=== PATIENT | female | born 1995 | race Caucasian/White ===

== ENCOUNTER 2016-10-15 22:49 | Emergency (ER) | payer OTHER ==
[~2016-10-15] VITALS: Ht 170.2 cm; Wt 61.9 kg
[2016-10-16 01:06] LABS: BASO % 0.4 % (0.0-1.0); EOS % 0.5 % (0.0-3.0); LARGE UNSTAINED CELL # 0.1 K/mm3 (0.0-0.4); LYMPH # 1.2 K/mm3 (1.5-6.5); LYMPH % 15.3 % (24.0-44.0); MEAN CORPUSCULAR HEMOGLOBIN 32.1 pg (27.0-33.0); MEAN CORPUSCULAR VOLUME 94.4 fl (80.0-96.0); MONO # 0.3 K/mm3 (0.0-0.8); MONO % 4.3 % (0.0-5.0); NEUTROPHILS # 6.2 K/mm3 (1.8-7.7); NEUTROPHILS % 78.5 % (36.0-66.0); PLATELET COUNT, AUTOMATED 212 k/mm3 (150-450); RED CELL DISTRIBUTION WIDTH 12.2 % (11.5-14.5); WHITE BLOOD COUNT 7.9 K/mm3 (4.0-10.0)
--- NOTE | 2016-10-16 01:40 | REPUSA ---
CLINICAL HISTORY: Vaginal bleeding. TECHNIQUE: Transabdominal and endovaginal ultrasound of the pelvis was performed. FINDINGS: Single, live intrauterine gestation. Estimated gestational age is 6 weeks. The crown-rump length measures 3 mm. heart rate 111 beats per minute. Large subchorionic hemorrhage measuring 3.1 cm. Right ovarian hemorrhagic cyst, likely a corpus luteum. Estimated delivery date on 06/11/2017. IMPRESSION: Single, live intrauterine gestation. Subchorionic hemorrhage. Right ovarian hemorrhagic cyst, likely a corpus luteum.
[2016-10-16 01:42] VITALS: BP 113/56
== END 2016-10-16 02:19 | disposition home or self-care (01) ==
LOC: M ED 10-16 00:06
DX: O20.0 Threatened abortion (principal); O20.8 Other hemorrhage in early pregnancy; O34.80 Maternal care for other abnormalities of pelvic organs, unspecified trimester; Z3A.01 Less than 8 weeks gestation of pregnancy

== ENCOUNTER 2017-06-05 05:19 | Inpatient (IN) | payer OTHER ==
[2017-06-05 06:05] LABS: HEMATOCRIT 31.8 % (36.0-47.0); HEMOGLOBIN 10.6 g/dl (12.0-16.0); MEAN CORPUSCULAR HEMOGLOBIN 30.4 pg (27.0-33.0); MEAN CORPUSCULAR HGB CONC 33.3 g/dl (32.0-36.5); MEAN CORPUSCULAR VOLUME 91.1 fl (80.0-96.0); PLATELET COUNT, AUTOMATED 259 10^3/uL (150-450); RED BLOOD COUNT 3.49 10^6/uL (4.00-5.40); RED CELL DISTRIBUTION WIDTH 13.7 % (11.5-14.5); WHITE BLOOD COUNT 11.9 10^3/uL (4.0-10.0)
[2017-06-05] MEDS: AZITHROMYCIN INJ 500 MG, VIAL MATE ADAPTER 1 EACH in D5W 250 ML IV (06:12)
[2017-06-05] MEDS: LR 1,000 ML IV ×5 (06:20→21:45)
[2017-06-05] MEDS: BICITRA 30ML SOLN UDC PO (07:44)
[2017-06-05] MEDS ORDERED: NALOXONE INJ 0.4 MG/1 ML VIAL (J2310) IV ×2 (08:03)
[2017-06-05] MEDS ORDERED: ONDANSETRON 4MG/2ML VIAL (J2405) IV ×2 (08:03→09:30)
[2017-06-05] MEDS ORDERED: METOCLOPRAMIDE INJ 10MG/2ML VIAL (J2765) IV ×2 (08:03→09:30)
[2017-06-05] MEDS ORDERED: NALBUPHINE HCL 10 MG/ML AMP (J2300) IV (08:03)
[2017-06-05] MEDS: ACETAMINOPHEN 650 MG SUPP PR (08:10)
[2017-06-05 08:39] LABS: CORD GAS ABE A 1.5; CORD GAS HCO3 A 30.7 MEQ/L; CORD GAS O2 SAT A 17.7 %; CORD GAS PCO2 A 70.6 mmHg; CORD GAS PH A 7.256 UNITS; CORD GAS PO2 A 12.3 mmHg; CORD GAS SBC A 23.8 MEQ/L; CORD GAS TCO2 A 32.9 MEQ/L
[2017-06-05 08:40] LABS: CORD GAS ABE V 1.4; CORD GAS HCO3 V 26.7 MEQ/L; CORD GAS O2 SAT V 69.6 %; CORD GAS PCO2 V 44.6 mmHg; CORD GAS PH V 7.395 UNITS; CORD GAS PO2 V 28.4 mmHg; CORD GAS TCO2 V 28.1 MEQ/L
[2017-06-05] MEDS ORDERED: ePHEDrine INJ 50 MG/ML VIAL As Ordered (08:40)
[2017-06-05] MEDS ORDERED: KETOROLAC 60 MG/2 ML VIAL (J1885) As Ordered (08:40)
[2017-06-05] MEDS ORDERED: OXYTOCIN INJ 10 UNITS/ML VIAL (J2590) As Ordered (08:40)
[2017-06-05] MEDS ORDERED: ONDANSETRON 4MG/2ML VIAL (J2405) As Ordered (08:40)
[2017-06-05] MEDS ORDERED: MORPHINE PRES-FREE INJ 10 MG/10 ML VIAL (J2274) As Ordered (08:40)
[2017-06-05] MEDS: BUPIVACAINE HCL 0.25% 10 ML VIAL INFIL (09:01)
[2017-06-05] MEDS ORDERED: OXYTOCIN INJ 10 UNITS/ML VIAL (J2590) IV (09:15)
[2017-06-05] MEDS ORDERED: PERCOCET 5MG/325MG TAB PO ×2 (09:15→09:30)
[2017-06-05] MEDS ORDERED: OXYTOCIN DRIP 30 UNITS in APPROPRIATE DILUENT 1 EA IV (09:15)
[2017-06-05] MEDS ORDERED: METHYLERGONOVINE MALEATE 0.2 MG TAB PO (09:15)
[2017-06-05] MEDS ORDERED: MOM 30ML SUSPENSION UDC PO (09:15)
[2017-06-05] MEDS ORDERED: ANUSOL HC CREAM 30GM TOP (09:15)
[2017-06-05] MEDS ORDERED: fentaNYL 100 MCG/2 ML INJECTION (J3010) IV (09:30)
[2017-06-05] MEDS ORDERED: MEPERIDINE INJ 25 MG/ML VIAL (J2175) IV (09:30)
[2017-06-05] MEDS: MEASLES,MUMPS,RUBELLA VACCINE INJ (MMR-II) (90707) SC (12:58)
[2017-06-05] MEDS: RHOGAM 300 MCG (1500 IU) INJ (J2790) IM (12:59)
[2017-06-05] MEDS: IBUPROFEN 800 MG TAB PO (18:14)
[2017-06-05] MEDS: DOCUSATE SODIUM 100 MG CAP PO (21:15)
[2017-06-06] MEDS: IBUPROFEN 800 MG TAB PO ×3 (01:28→17:01)
[2017-06-06 07:10] LABS: HEMATOCRIT 25.9 % (36.0-47.0); MEAN CORPUSCULAR HEMOGLOBIN 29.9 pg (27.0-33.0); MEAN CORPUSCULAR HGB CONC 32.8 g/dl (32.0-36.5); MEAN CORPUSCULAR VOLUME 91.2 fl (80.0-96.0); PLATELET COUNT, AUTOMATED 225 10^3/uL (150-450); RED BLOOD COUNT 2.84 10^6/uL (4.00-5.40); WHITE BLOOD COUNT 10.3 10^3/uL (4.0-10.0)
[2017-06-06 07:17] LABS: HEMOGLOBIN 8.5 g/dl (12.0-16.0)
[2017-06-06] MEDS: PRENATAL VITAMINS CHEWABLE TABLET PO (09:22)
[2017-06-06] MEDS: PERCOCET 5MG/325MG TAB PO (09:23)
[2017-06-06] MEDS: DOCUSATE SODIUM 100 MG CAP PO (20:19)
[2017-06-07] MEDS: IBUPROFEN 800 MG TAB PO ×2 (00:27→09:14)
[2017-06-07] MEDS: PRENATAL VITAMINS CHEWABLE TABLET PO (09:14)
== END 2017-06-07 12:15 | disposition home or self-care (01) | DRG 765 ==
LOC: M LDI 05:19 → M OBS 14:37
PROVIDERS: Obstetrics & Gynecology
PROC: 10D00Z1 Extraction of Products of Conception, Low, Open Approach (ICD-10-PCS; principal; 2017-06-05 07:30)
DX: O32.1XX0 Maternal care for breech presentation, not applicable or unspecified (principal); O41.03X0 Oligohydramnios, third trimester, not applicable or unspecified; Z37.0 Single live birth; Z3A.39 39 weeks gestation of pregnancy